=== PATIENT | male | born 1980 | race Caucasian/White ===

== ENCOUNTER 2016-12-02 13:56 | Emergency (ER) | payer BC ==
[~2016-12-02] VITALS: Ht 170.2 cm; Wt 86.3 kg
[~2016-12-02 13:56] MED LIST: ADVIL,NUPRIN,M200 MG PO; TYLENOL EXTRA500 MG PO
[2016-12-02 16:55] LABS: HEMATOCRIT 43.4 % (38.0-50.0); MCH 29.4 PG (29.0-34.0); MCHC 34.3 G/DL (30.0-36.0); MCV 85.6 FL (86-99); MEAN PLAT.VOLUME 9.1 uM^3 (9.0-12.4); PLATELET COUNT 193 K/uL (156-360); RBC DIS.WIDTH-CV 12.3 % (11.8-14.6); RBC DIS.WIDTH-SD 38.3 % (39-53); RED BLOOD COUNT 5.07 M/uL (4.00-5.50); WHITE BLOOD COUNT 6.3 K/uL (4.1-10.2)
[2016-12-02 17:04] LABS: CHLORIDE 102 mEq/L (99-109); SODIUM 136 mEq/L (136-147)
[2016-12-02 17:06] LABS: GLUCOSE 90 mg/dL (70-99)
[2016-12-02 17:07] LABS: ANION GAP 9 MEQ/L (2-14)
[2016-12-02 17:08] LABS: TOTAL BILIRUBIN 0.5 mg/dL (0.0-1.0)
[2016-12-02 17:09] LABS: ALKALINE PHOSPHATASE 66 IU/L (3-129)
[2016-12-02 17:10] LABS: GFR ESTIMATE (CALCULATED) > 59 mL/min/
[2016-12-02 17:11] LABS: UREA NITROGEN (BUN) 17 mg/dL (9-23)
[2016-12-02] MEDS ORDERED: VALIUM5 MG PO (19:04)
[2016-12-02] MEDS ORDERED: ZOFRAN ODT4 MG PO (19:04)
[2016-12-02] MEDS ORDERED: REGLAN5 MG PO (19:06)
[2016-12-02 20:22] VITALS: BP 125/78
== END 2016-12-02 20:24 | disposition home or self-care (01) ==
LOC: EME 13:56
PROVIDERS: Nurse Practitioner Family
DX: R42 Dizziness and giddiness (principal)
CPT/HCPCS: 70450; 80053; 85027; 99281; 99284; J3360